=== PATIENT | male | born 1965 | race Caucasian/White ===

== ENCOUNTER → 2017-03-24 | Outpatient (REF) | payer OTHER ==
[2017-04-03 08:07] LABS: BENZODIAZEPINES, URINE SCREEN See Final Results ng/mL (Cutoff=200); METHADONE, URINE SCREEN Negative ng/mL (Cutoff=300); pH, URINE 6.5 (4.5-8.9)
== END ==
LOC: M LAB REF 13:18
PROVIDERS: ATTEND Family Medicine Addiction Medicine
DX: F11.21 Opioid dependence, in remission (principal)

== ENCOUNTER → 2017-04-09 | Outpatient (REF) | payer OTHER | LOC: M LAB REF 12:41 | PROVIDERS: ATTEND Family Medicine Addiction Medicine | DX: F11.21 Opioid dependence, in remission (principal) ==

== ENCOUNTER → 2017-04-15 | Outpatient (REF) | payer OTHER | LOC: M LAB REF 09:19 | PROVIDERS: ATTEND Family Medicine Addiction Medicine | DX: F11.21 Opioid dependence, in remission (principal) ==

== ENCOUNTER → 2017-04-22 | Outpatient (REF) | payer OTHER ==
[2017-04-22 13:35] LABS: ALBUMIN 3.4 GM/DL (3.2-5.2); ALBUMIN/GLOBULIN RATIO 0.92 (1.00-1.93); ALKALINE PHOSPHATASE 70 U/L (45-117); ALT/SGPT 102 U/L (12-78); ANION GAP 5 MEQ/L (8-16); AST/SGOT 54 U/L (7-37); BILIRUBIN,TOTAL 0.6 MG/DL (0.2-1.0); BLOOD UREA NITROGEN 15 MG/DL (7-18); CALCIUM LEVEL 8.9 MG/DL (8.5-10.1); CARBON DIOXIDE LEVEL 30 MEQ/L (21-32); CHLORIDE LEVEL 108 MEQ/L (98-107); CHOLESTEROL LEVEL 179 MG/DL (<200); CREATININE FOR GFR 0.76 MG/DL (0.70-1.30); GLOMERULAR FILTRATION RATE > 60.0 (>56); GLUCOSE, FASTING 95 MG/DL (70-105); POTASSIUM SERUM 4.3 MEQ/L (3.5-5.1); SODIUM LEVEL 143 MEQ/L (136-145); TOTAL PROTEIN 7.1 GM/DL (6.4-8.2); TRIGLYCERIDES LEVEL 57 MG/DL (<150)
== END ==
LOC: M LAB REF 12:46
PROVIDERS: ATTEND Family Medicine Addiction Medicine
DX: F11.21 Opioid dependence, in remission (principal)

== ENCOUNTER → 2017-05-06 | Outpatient (REF) | payer OTHER | LOC: M LAB REF 13:31 | PROVIDERS: ATTEND Family Medicine Addiction Medicine | DX: F11.21 Opioid dependence, in remission (principal) ==

== ENCOUNTER → 2017-05-27 | Outpatient (REF) | payer MEDICAID, OTHER, SELFPAY ==
[2017-06-09 00:07] LABS: ALPRAZOLAM, URINE Positive (.); ALPRAZOLAM, URINE CONFIRM 343 ng/mL (Cutoff=100); AMPHETAMINE SCREEN, URINE See Final Results ng/mL (Cutoff=1000); AMPHETAMINE, URINE GC/MS 808 ng/mL (Cutoff=500); AMPHETAMINES , URINE Positive (.); AMPHETAMINES , URINE Positive (Cutoff=1000); BARBITURATES SCREEN, URINE Negative ng/mL (Cutoff=200); BENZODIAZEPINES, URINE Positive ng/mL (Cutoff=100); BENZODIAZEPINES, URINE SCREEN See Final Results ng/mL (Cutoff=200); CANNABINOID SCREEN, URINE See Final Results ng/mL (Cutoff=20); CANNABINOID, URINE Positive (Cutoff=20); CARBOXY THC (GC/MS) 142 ng/mL (Cutoff=10); CLONAZEPAM, URINE Negative (Cutoff=100); COCAINE SCREEN, URINE Negative ng/mL (Cutoff=300); CREATININE, URINE 54.7 mg/dL (20.0-300.0); FENTANYL URINE SCREEN See Final Results pg/mL (Cutoff=2000); FLURAZEPAM, URINE Negative (Cutoff=100); LORAZEPAM, URINE Negative (Cutoff=100); METHADONE, URINE SCREEN Negative ng/mL (Cutoff=300); METHAMPHETAMINE, URINE Positive (.); METHAMPHETAMINE, URINE GC/MS 1896 ng/mL (Cutoff=500); MIDAZOLAM, URINE Negative (Cutoff=100); NALOXONE RESULT Positive (.); NORDIAZEPAM, URINE Negative (Cutoff=100); OPIATE SCREEN, URINE Negative ng/mL (Cutoff=300); OXAZEPAM, URINE Negative (Cutoff=100); OXYCODONE, SCREEN, URINE Negative ng/mL (Cutoff=100); PCP SCREEN, URINE Negative ng/mL (Cutoff=25); SPECIFIC GRAVITY, URINE 1.007 (.); TEMAZEPAM, URINE Negative (Cutoff=100); TRIAZOLAM, URINE Negative (Cutoff=100); URINE BUPRENORPHINE Positive (.); URINE BUPRENORPHINE Positive (Cutoff=10); URINE BUPRENORPHINE See Final Results ng/mL (Cutoff=10); URINE BUPRENORPHINE CONFIRM 102 ng/mL (Cutoff=10); URINE NORBUPRENORPHINE Positive (.); URINE NORBUPRENORPHINE CONFIRM 366 ng/mL (Cutoff=10); pH, URINE 5.5 (4.5-8.9)
== END ==
LOC: M LAB REF 13:12
DX: F11.21 Opioid dependence, in remission (principal)
CPT/HCPCS: G0480

== ENCOUNTER → 2017-06-10 | Outpatient (REF) | payer MEDICAID, SELFPAY ==
[2017-06-20 14:12] LABS: ALPRAZOLAM, URINE Negative (Cutoff=100); AMPHETAMINE SCREEN, URINE Negative ng/mL (Cutoff=1000); BARBITURATES SCREEN, URINE Negative ng/mL (Cutoff=200); BENZODIAZEPINES, URINE Negative ng/mL (Cutoff=100); BENZODIAZEPINES, URINE SCREEN See Final Results ng/mL (Cutoff=200); CANNABINOID SCREEN, URINE See Final Results ng/mL (Cutoff=20); CANNABINOID, URINE Positive (Cutoff=20); CARBOXY THC (GC/MS) 132 ng/mL (Cutoff=10); CLONAZEPAM, URINE Negative (Cutoff=100); COCAINE SCREEN, URINE Negative ng/mL (Cutoff=300); CREATININE, URINE 32.5 mg/dL (20.0-300.0); FENTANYL URINE SCREEN Negative pg/mL (Cutoff=2000); FLURAZEPAM, URINE Negative (Cutoff=100); LORAZEPAM, URINE Negative (Cutoff=100); METHADONE, URINE SCREEN Negative ng/mL (Cutoff=300); MIDAZOLAM, URINE Negative (Cutoff=100); NALOXONE RESULT Positive (.); NORDIAZEPAM, URINE Negative (Cutoff=100); OPIATE SCREEN, URINE Negative ng/mL (Cutoff=300); OXAZEPAM, URINE Negative (Cutoff=100); OXYCODONE, SCREEN, URINE Negative ng/mL (Cutoff=100); PCP SCREEN, URINE Negative ng/mL (Cutoff=25); SPECIFIC GRAVITY, URINE 1.006 (.); TEMAZEPAM, URINE Negative (Cutoff=100); TRIAZOLAM, URINE Negative (Cutoff=100); URINE BUPRENORPHINE Positive (.); URINE BUPRENORPHINE Positive (Cutoff=10); URINE BUPRENORPHINE See Final Results ng/mL (Cutoff=10); URINE BUPRENORPHINE CONFIRM 138 ng/mL (Cutoff=10); URINE NORBUPRENORPHINE Positive (.); URINE NORBUPRENORPHINE CONFIRM 192 ng/mL (Cutoff=10); pH, URINE 5.5 (4.5-8.9)
== END ==
LOC: M LAB REF 19:37
DX: F11.21 Opioid dependence, in remission (principal)
CPT/HCPCS: G0480

== ENCOUNTER → 2017-06-24 | Outpatient (REF) | payer SELFPAY | LOC: M LAB REF 19:31 | DX: F11.21 Opioid dependence, in remission (principal) ==

== ENCOUNTER → 2017-06-25 | Outpatient (REF) | payer SELFPAY | LOC: M LAB REF 06-26 12:08 | DX: F11.21 Opioid dependence, in remission (principal) ==

== ENCOUNTER 2017-12-24 20:28 | Emergency (ER) | payer OTHER, MEDICAID ==
[2017-12-24 22:57] LABS: CALCIUM OXALATE CRYSTALS RFX LARGE; KETONE, URINE AUTO RFX TRACE mg/dL (NEGATIVE); LEUKOCYTE ESTERASE UR AUTO RFX NEGATIVE (NEGATIVE); MUCUS, URINE RFX SMALL (NEGATIVE); NITRITE, URINE AUTO RFX NEGATIVE (NEGATIVE); RBC, URINE AUTO RFX 6 /HPF (0-3); SPECIFIC GRAVITY UR AUTO RFX 1.029 (1.002-1.035); SQUAM EPITHELIAL CELL UR AURFX 0 /HPF (0-6); WBC, URINE AUTO RFX 1 /HPF (0-3)
[2017-12-24 23:07] LABS: CHLAMYDIA DNA AMPLIFICATION NEGATIVE (NEGATIVE); GC DNA AMPLIFICATION NEGATIVE (NEGATIVE)
== END 2017-12-24 23:23 | disposition home or self-care (01) ==
LOC: M ED 20:28
DX: N48.6 Induration penis plastica (principal); Z86.19 Personal history of other infectious and parasitic diseases; Z72.0 Tobacco use; Z79.899 Other long term (current) drug therapy
CPT/HCPCS: 81001

== ENCOUNTER → 2021-08-26 | Outpatient (REF) | payer OTHER ==
[~2021-08-26] MED LIST: SUBO12MI SL
== END ==
LOC: M LAB REF 16:27
PROVIDERS: ATTEND Physician Assistant
DX: R50.9 Fever, unspecified (principal)

== ENCOUNTER 2023-05-26 12:53 | Emergency (ER) | payer OTHER ==
[~2023-05-26] VITALS: Ht 175.3 cm; Wt 82.7 kg
[2023-05-26 12:53] VITALS: BP 130/80; TEMP 96.9; O2SAT 100
[2023-05-26] MEDS ORDERED: GABA-284 (12:57)
[2023-05-26] MEDS ORDERED: CLON-412 (12:57)
== END 2023-05-26 15:24 | disposition home or self-care (01) ==
LOC: M ED 12:53
DX: S62.304A Unspecified fracture of fourth metacarpal bone, right hand, initial encounter for closed fracture (principal); S62.306A Unspecified fracture of fifth metacarpal bone, right hand, initial encounter for closed fracture; W22.8XXA Striking against or struck by other objects, initial encounter; Y92.009 Unspecified place in unspecified non-institutional (private) residence as the place of occurrence of the external cause; Y93.89 Activity, other specified; Y99.8 Other external cause status; B19.20 Unspecified viral hepatitis C without hepatic coma; Z79.899 Other long term (current) drug therapy

== ENCOUNTER → 2023-06-11 | Outpatient (CLI) | payer OTHER ==
[~2023-06-11] MED LIST changes: +CLON-412; +GABA-284
== END ==
LOC: M SOG 07:56
PROVIDERS: ATTEND Physician Assistant
DX: S62.304A Unspecified fracture of fourth metacarpal bone, right hand, initial encounter for closed fracture (principal); S62.306A Unspecified fracture of fifth metacarpal bone, right hand, initial encounter for closed fracture; X58.XXXA Exposure to other specified factors, initial encounter; Y92.9 Unspecified place or not applicable; Y93.9 Activity, unspecified; Y99.9 Unspecified external cause status

== ENCOUNTER → 2023-06-25 | Outpatient (CLI) | payer OTHER | LOC: M SOG 07:58 | PROVIDERS: ATTEND Physician Assistant | DX: S62.304A Unspecified fracture of fourth metacarpal bone, right hand, initial encounter for closed fracture (principal); W18.30XA Fall on same level, unspecified, initial encounter; Y92.009 Unspecified place in unspecified non-institutional (private) residence as the place of occurrence of the external cause ==

== ENCOUNTER → 2023-07-08 | Outpatient (CLI) | payer OTHER ==
[2023-07-08 11:16] LABS: HEPATITIS B SURFACE ANTIBODY NEGATIVE (POSITIVE)
[2023-07-10 00:06] LABS: HEPATITIS A IgG TOTAL Positive (Negative); HEPATITIS B CORE ANTIBODY IGG Negative (Negative); HEPATITIS C QUANTITATION 1400000 IU/mL (.)
== END ==
LOC: M LAB 09:43
PROVIDERS: ATTEND Internal Medicine Infectious Disease
DX: B18.2 Chronic viral hepatitis C (principal)

== ENCOUNTER → 2023-07-24 | Outpatient (CLI) | payer OTHER | LOC: M SOG 08:03 | PROVIDERS: ATTEND Physician Assistant | DX: Z53.9 Procedure and treatment not carried out, unspecified reason (principal) ==

== ENCOUNTER → 2023-10-08 | Outpatient (REF) | LOC: M LAB 17:08 | PROVIDERS: ATTEND Nurse Practitioner Adult Health | DX: Z00.00 Encounter for general adult medical examination without abnormal findings (principal) ==

== ENCOUNTER → 2024-05-10 | Outpatient (CLI) | payer OTHER | LOC: M RAD 07:09 | PROVIDERS: ATTEND Internal Medicine Infectious Disease | DX: B18.2 Chronic viral hepatitis C (principal) ==

== ENCOUNTER → 2024-06-07 | Outpatient (REF) | payer OTHER ==
[2024-06-07 18:52] LABS: BASO # 0.1 10^3/uL (0.0-0.2); BASO % 0.8 % (0.0-1.0); EOS # 0.1 10^3/uL (0.0-0.5); EOS % 0.8 % (0.0-3.0); HEMOGLOBIN 15.1 g/dl (13.5-17.5); LYMPH # 2.3 10^3/uL (1.5-5.0); LYMPH % 30.6 % (24.0-44.0); MEAN CORPUSCULAR HEMOGLOBIN 30.6 pg (27.0-33.0); MEAN CORPUSCULAR HGB CONC 33.6 g/dl (32.0-36.5); MEAN CORPUSCULAR VOLUME 91.1 fl (80.0-96.0); MONO # 0.6 10^3/uL (0.0-0.8); MONO % 7.4 % (2.0-8.0); NEUTROPHILS # 4.5 10^3/uL (1.5-8.5); NEUTROPHILS % 60.1 % (36.0-66.0); PLATELET COUNT, AUTOMATED 284 10^3/uL (150-450); RED BLOOD COUNT 4.94 10^6/uL (4.30-6.10); WHITE BLOOD COUNT 7.6 10^3/uL (4.0-10.0)
== END ==
LOC: M SFHCPLAZ 13:24
PROVIDERS: ATTEND Internal Medicine Infectious Disease
DX: B18.2 Chronic viral hepatitis C (principal)